=== PATIENT | male | born 1960 | race Caucasian/White ===

== ENCOUNTER 2016-09-19 12:54 | Day surgery (SDC) | payer OTHER ==
[2016-09-15 16:25] VITALS: BMI 27.9
--- NOTE | 2016-09-19 14:31 | HP ---
Satellite H - Chief Complaint History of Present Illness: 56 year old male with renal failure and DM. He needs placement of PD catheter for planned dialysis. History Source: Patient Limitations to Obtaining History: No Limitations - Past Medical History Allergies/Adverse Reactions: Allergies Allergy/AdvReac Type Severity Reaction Status Date / Time Penicillins Allergy Unknown Verified 09/19/16 13:18 Cardiovascular: Yes: HTN, Hyperlipdemia Renal/: Yes: Renal Failure Endocrine: Yes: Diabetes Mellitus - Current Medications Current Medications: Home Medications Medication Instructions Recorded Allopurinol [Zyloprim -] 100 mg PO DAILY 09/15/16 Atorvastatin Ca [Lipitor] 80 mg PO DAILY 09/15/16 Calcitriol [Rocaltrol -] 0.25 mcg PO DAILY 09/15/16 Calcium Acetate [Phoslo -] 1,334 mg PO TIDCM 09/15/16 Insulin Glargine,Hum.rec.anlog 20 units SQ HS 09/15/16 [Lantus (nf)] Insulin Lispro [Humalog] See Protocol SQ TID 09/15/16 Patiromer Calcium Sorbitex 25.2 gm PO HS 09/15/16 [Veltassa] Torsemide 20 mg PO DAILY 09/15/16 Verapamil HCl [Verapamil ER] 240 mg PO BID 09/15/16 Satellite Physical Exam - Physical Examination Vital Signs: Vital Signs Period Temp Pulse Resp BP Sys/Oropeza Pulse Ox Last 24 Hr 97.4 F 77 16 181/88 98 General Appearance: Well Developed, Alert & Oriented x3 ENT: Clear Lung: Clear to auscultation Heart: Regular rate & rhythm Breasts: Soft, Non-Tender Abdomen: Soft, No tenderness Extremities: No edema Neurological: Intact Satellite Impression/Plan - Impression/Plan Impression: CKD with need for dialsis in near future. Patient requesting peritoneal dialysis. Operative Procedure: Laparoscopic placement of PD catheter. Date to be Performed: 09/19/16
[2016-09-19] MEDS ORDERED: MIDAZOLAM HCL 2 MG/2 ML SINGLE DOSE VIAL ONE (14:45)
[2016-09-19] MEDS ORDERED: oxyCODONE HCL 5 MG TABLET PO PRN ×2 (14:47→15:57)
[2016-09-19] MEDS ORDERED: ONDANSETRON 4 MG/2 ML VIAL IVPUSH PRN (14:47)
[2016-09-19] MEDS ORDERED: PROPOFOL 20 ML ONE ×2 (14:54)
[2016-09-19] MEDS ORDERED: VECURONIUM BROMIDE 10 MG VIAL ONE (14:55)
[2016-09-19] MEDS ORDERED: ROCURONIUM BROMIDE 50 MG/5 ML VIAL ONE (14:55)
[2016-09-19] MEDS ORDERED: CLINDAMYCIN 300 MG PREMIX BAG IVPB ONE (15:00)
[2016-09-19] MEDS ORDERED: SODIUM CHLORIDE 1,000 ML IV SCH (15:00)
[2016-09-19] MEDS ORDERED: BUPIVACAINE HCL/PF 0.5% (5MG/ML) 10 ML VIAL IJ ONE (15:24)
[2016-09-19] MEDS ORDERED: NEOSTIGMINE METHYLSULFATE 0.5 MG/ML - 10 ML MDV ONE (15:29)
--- NOTE | 2016-09-19 15:56 | OP ---
Operative Note - Note: Operative Date: 09/19/16 Pre-Operative Diagnosis: CKD 5 Operation: Laparoscopy, placement peritoneal dialysis catheter Findings: No intraabdominal adhesions. Implants: [place] neck double cuff Tenckhoff catheter Post-Operative Diagnosis: Same as Pre-op Surgeon: Andrew Rios Anesthesiologist/SENIOR CONTROLS ANALYST: Daniela Armstrong Anesthesia: General
[2016-09-19 17:27] VITALS: TEMP 97.8
[2016-09-19 18:28] VITALS: BP 184/80; PULSE 76
--- NOTE | 2016-10-01 12:49 | OP ---
DATE OF OPERATION: 09/19/2016 SURGEON: Andrew Robb MD PROCEDURE: Laparoscopy with placement of peritoneal dialysis catheter. PREOPERATIVE DIAGNOSIS: Renal failure. POSTOPERATIVE DIAGNOSIS: Renal failure. ANESTHESIA: General. ANESTHESIOLOGIST: Daniela Armstrong MD OPERATIVE FINDINGS: There were no interatrial adhesions. OPERATIVE PROCEDURE: Following routine patient identification, with surgical time-out performed, general anesthesia was induced. The abdomen was prepped with ChloraPrep. Marcaine 0.5% was infiltrated in the skin above the umbilicus and a small incision made. A 5-mm optical trocar was then placed under direct visualization into the peritoneal cavity. Pneumoperitoneum was established with carbon dioxide gas to 15 mmHg, and a 5-mm angled laparoscope used to explore the abdomen. An incision was made to the right of the umbilicus and an 8-mm bladeless trocar advanced to the underside of the peritoneum of the abdominal cavity. The trocar was then advanced distally towards the pubis, where it entered the peritoneal cavity at the upper edge of the pelvis. A swan-neck curled Tenckhoff catheter was then straightened with a wire and advanced through the port and deployed into the pelvis. The port was removed and the inner cuff was left just underneath the fascia. The other end of the catheter was then attached to a curved tunneler which was brought out in the left lower abdominal wall, with care not to twist it. The Luer-Shanika adaptor was attached and pneumoperitoneum was evacuated. One liter of saline was then allowed to run into the peritoneal cavity. This took less than 3.5 minutes. It was then allowed to drain, leaving approximately 200 mL of fluid in the abdomen. All ports were removed. The wounds were closed with sutures of 3-0 Vicryl in the subcutaneous tissues and subcuticular suture of 4-0 Biosyn for the skin. Dermabond glue was applied to the surgical incisions. The catheter was dressed with Biopatch and adherent dressing. The patient was then taken to the recovery room in stable condition. ANDREW ROBB M.D. [id number]
== END 2016-09-19 18:29 | disposition home or self-care (01) ==
LOC: JASU-SURG 12:54
PROVIDERS: ATTEND Surgery
PROC: 0WHG43Z Insertion of Infusion Device into Peritoneal Cavity, Percutaneous Endoscopic Approach (ICD-10-PCS; principal; 2016-09-19 14:30)
DX: E11.22 Type 2 diabetes mellitus with diabetic chronic kidney disease (principal); I12.0 Hypertensive chronic kidney disease with stage 5 chronic kidney disease or end stage renal disease; N18.6 End stage renal disease; Z99.2 Dependence on renal dialysis
CPT/HCPCS: 94760